=== PATIENT | male | born 1955 | race Caucasian/White ===

== ENCOUNTER 2021-01-28 23:45 | Inpatient (IN) | payer MEDICARE, OTHER ==
[~2021-01-28] VITALS: Ht 175 cm; Wt 88.1 kg
[~2021-01-28 23:45] MED LIST: AMLO5TAB2 PO; ASPI-266 PO; CARV25TA PO; CYAN50TA PO; DIAZ10TA PO; GEMF600T3 PO; LISI1TAB78 PO; PANT40TA2 PO; ROSU20TA14 PO; UBID1CAP51 PO
[2021-01-29 00:05] LABS: BASOPHILS # (AUTO) 0.1 10^3/uL (0.0-0.1); BASOPHILS % (AUTO) 1 % (0-10); EOSINOPHILS # (AUTO) 0.1 10^3/uL (0.0-0.3); EOSINOPHILS % (AUTO) 2 % (0-10); HEMATOCRIT 36 % (40-54); HEMOGLOBIN 12.7 g/dL (13.3-17.7); LYMPHOCYTES # (AUTO) 2.2 10^3/uL (1.0-4.0); LYMPHOCYTES % (AUTO) 43 % (12-44); MEAN CORPUSCULAR HEMOGLOBIN 34 pg (25-34); MEAN CORPUSCULAR HGB CONC 35 g/dL (32-36); MEAN CORPUSCULAR VOLUME 98 fL (80-99); MEAN PLATELET VOLUME 11.1 fL (9.0-12.2); MONOCYTES # (AUTO) 0.5 10^3/uL (0.0-1.0); MONOCYTES % (AUTO) 11 % (0-12); NEUTROPHILS # (AUTO) 2.2 10^3/uL (1.8-7.8); NEUTROPHILS % (AUTO) 43 % (42-75); PLATELET COUNT 198 10^3/uL (130-400); WHITE BLOOD COUNT 5.1 10^3/uL (4.3-11.0)
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
[2021-01-29 00:17] LABS: ALBUMIN 4.9 GM/DL (3.2-4.5); CHLORIDE 107 MMOL/L (98-107); POTASSIUM 3.8 MMOL/L (3.6-5.0); SODIUM 137 MMOL/L (135-145)
[2021-01-29 00:19] LABS: CALCIUM 9.5 MG/DL (8.5-10.1)
[2021-01-29 00:20] LABS: GLUCOSE 110 MG/DL (70-105); TOTAL PROTEIN 7.8 GM/DL (6.4-8.2)
[2021-01-29 00:21] LABS: CARBON DIOXIDE 14 MMOL/L (21-32)
[2021-01-29 00:22] LABS: BILIRUBIN,TOTAL 0.3 MG/DL (0.1-1.0)
[2021-01-29 00:23] LABS: ALKALINE PHOSPHATASE 70 U/L (40-136)
[2021-01-29 00:24] LABS: CREATININE SERUM 1.11 MG/DL (0.60-1.30); GFR ESTIMATED > 60
[2021-01-29 00:25] LABS: BUN/CREATININE RATIO 11
[2021-01-29 00:26] LABS: ALANINE AMINOTRANSFERASE 24 U/L (0-55)
[2021-01-29 00:44] LABS: BILIRUBIN,URINE NEGATIVE (NEGATIVE); CLARITY,URINE CLEAR; COLOR,URINE YELLOW; GLUCOSE, URINE (UA) NEGATIVE (NEGATIVE); KETONES,URINE NEGATIVE (NEGATIVE); LEUKOCYTE ESTERASE ,URINE NEGATIVE (NEGATIVE); NITRITE,URINE NEGATIVE (NEGATIVE); PROTEIN,URINE NEGATIVE (NEGATIVE)
[2021-01-29 00:58] LABS: AMPHETAMINE SCREEN, URINE NEGATIVE (NEGATIVE); BACTERIA,URINE NEGATIVE /HPF; BARBITURATE SCREEN URINE NEGATIVE (NEGATIVE); BENZODIAZEPINES SCREEN URINE POSITIVE (NEGATIVE); CANNABINOID SCREEN, URINE NEGATIVE (NEGATIVE); COCAINE SCREEN URINE NEGATIVE (NEGATIVE); METHADONE STAT NEGATIVE (NEGATIVE); METHAMPHETAMINE SCREEN URINE S NEGATIVE (NEGATIVE); OPIATE SCREEN URINE NEGATIVE (NEGATIVE); OXYCODONE STAT NEGATIVE (NEGATIVE); PROPOXYPHENE STAT NEGATIVE (NEGATIVE); TRICYCLIC ANTIDEPRESSANTS SCRE NEGATIVE (NEGATIVE)
[2021-01-29 00:59] LABS: SQUAMOUS EPITHELIAL CELL,UR RARE /HPF
[2021-01-29] MEDS ORDERED: fentaNYL INJ 100 MCG/2 ML AMP IVP ONE ×2 (01:00→02:00)
[2021-01-29] MEDS ORDERED: LACTATED RINGERS 1,000 ML IV ONE (01:15)
[2021-01-29 02:00] VITALS: BP 142/75
[2021-01-29] MEDS ORDERED: 1/2 NS IV SOLUTION 1,000 ML IV PRN (02:30)
[2021-01-29] MEDS ORDERED: SENNA W/DOCUSATE (SENOKOT S) TABLET PO PRN (02:30)
[2021-01-29] MEDS ORDERED: LORazepam 1 MG (ATIVAN) TAB PO PRN (02:30)
[2021-01-29] MEDS ORDERED: LORazepam INJ 2 MG/ML (ATIVAN) VIAL IM/IV PRN (02:30)
[2021-01-29] MEDS ORDERED: fentaNYL INJ 100 MCG/2 ML AMP IV PRN ×2 (02:30→08:30)
[2021-01-29] MEDS ORDERED: ONDANSETRON 4 MG/2 ML (SDV) Z0FRAN IV PRN (02:30)
[2021-01-29] MEDS ORDERED: ONDANSETRON 4 MG (ZOFRAN) ORAL DISSOLVE TAB SL PRN (02:30)
[2021-01-29] MEDS ORDERED: LORazepam INJ 2 MG/ML (ATIVAN) VIAL IV PRN (02:30)
[2021-01-29] MEDS ORDERED: D5 1/2 NS 1000 ML IV SOLUTION 1,000 ML IV PRN (02:30)
[2021-01-29] MEDS ORDERED: ANTACID SUSP 30 ML UDC (MYLANTA) PO PRN (02:30)
[2021-01-29] MEDS: D5 1/2 NS W/KCL 20 MEQ/L 1,000 ML IV SCH ×4 (03:37→22:10)
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
[2021-01-29] MEDS: THIAMINE INJECTION 100 MG, FOLIC ACID INJECTION 1 MG, MAGNESIUM SULFATE 2 GM, VITAMIN M... IV SCH ×5 (08:04)
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
[2021-01-29] MEDS: fentaNYL INJ 100 MCG/2 ML AMP IV PRN ×7 (09:11→22:19)
[2021-01-29 10:42] LABS: BASOPHILS % (AUTO) 0 % (0-10); EOSINOPHILS % (AUTO) 0 % (0-10); HEMATOCRIT 35 % (40-54); HEMOGLOBIN 11.9 g/dL (13.3-17.7); LYMPHOCYTES # (AUTO) 1.4 X 10^3 (1.0-4.0); LYMPHOCYTES % (AUTO) 20 % (12-44); MEAN CORPUSCULAR HEMOGLOBIN 34 pg (25-34); MEAN CORPUSCULAR HGB CONC 34 g/dL (32-36); MEAN CORPUSCULAR VOLUME 99 fL (80-99); MEAN PLATELET VOLUME 11.4 fL (9.0-12.2); MONOCYTES # (AUTO) 0.6 X 10^3 (0.0-1.0); MONOCYTES % (AUTO) 9 % (0-12); NEUTROPHILS % (AUTO) 70 % (42-75); PLATELET COUNT 196 10^3/uL (130-400); WHITE BLOOD COUNT 7.1 10^3/uL (4.3-11.0)
[2021-01-29] MEDS ORDERED: MULT-1136 PO (10:50)
[2021-01-29] MEDS ORDERED: PANT40TA52 PO (10:50)
[2021-01-29] MEDS ORDERED: AMLO-251 PO (10:50)
[2021-01-29] MEDS ORDERED: DIAZ10TA3 PO (10:50)
[2021-01-29] MEDS ORDERED: UBID100C17 PO (10:50)
[2021-01-29] MEDS ORDERED: LISI20TA26 PO (10:50)
[2021-01-29] MEDS ORDERED: ATOR80TA76 PO (10:50)
[2021-01-29] MEDS ORDERED: CARV25TA PO (10:50)
[2021-01-29] MEDS ORDERED: ASPI-1238 PO (10:50)
[2021-01-29] MEDS ORDERED: GEMF600T88 PO (10:50)
[2021-01-29] MEDS ORDERED: OMEG-109 PO (10:50)
[2021-01-29 11:06] LABS: ALANINE AMINOTRANSFERASE 23 U/L (0-55); ALBUMIN 4.5 GM/DL (3.2-4.5); ALKALINE PHOSPHATASE 60 U/L (40-136); BILIRUBIN,TOTAL 0.2 MG/DL (0.1-1.0); BUN/CREATININE RATIO 11; CALCIUM 8.9 MG/DL (8.5-10.1); CARBON DIOXIDE 17 MMOL/L (21-32); CHLORIDE 104 MMOL/L (98-107); CREATININE SERUM 0.95 MG/DL (0.60-1.30); GFR ESTIMATED > 60; GLUCOSE 127 MG/DL (70-105); MAGNESIUM 1.7 MG/DL (1.6-2.4); PHOSPHORUS 3.4 MG/DL (2.3-4.7); SODIUM 132 MMOL/L (135-145); TOTAL PROTEIN 7.1 GM/DL (6.4-8.2)
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
[2021-01-29] MEDS: HYDROcodone/APAP 7.5MG-325 MG/15 ML (LORTAB) UDC PO PRN ×2 (17:09→22:14)
[2021-01-29] MEDS ORDERED: NON-FORMULARY MEDICATION 1 EA EA (Carvedilol 12.5 MG) PO SCH (18:00)
[2021-01-29] MEDS: lisINopril 20 MG (PRINIVIL) TABLET PO SCH (20:09)
[2021-01-29] MEDS: GEMFIBROZIL 600 MG (LOPID) TAB PO SCH (20:09)
[2021-01-29] MEDS ORDERED: PANTOPRAZOLE 40 MG (PROTONIX) TAB PO ONE (20:14)
[2021-01-29] MEDS ORDERED: ROSUVASTATIN 10 MG (CRESTOR) TABLET PO SCH (21:00)
[2021-01-30] MEDS: fentaNYL INJ 100 MCG/2 ML AMP IV PRN ×7 (01:07→14:38)
[2021-01-30 03:40] LABS: BASOPHILS % (AUTO) 1 % (0-10); EOSINOPHILS % (AUTO) 1 % (0-10); HEMATOCRIT 34 % (40-54); HEMOGLOBIN 11.7 g/dL (13.3-17.7); LYMPHOCYTES # (AUTO) 1.6 10^3/uL (1.0-4.0); LYMPHOCYTES % (AUTO) 29 % (12-44); MEAN CORPUSCULAR HEMOGLOBIN 34 pg (25-34); MEAN CORPUSCULAR HGB CONC 34 g/dL (32-36); MEAN CORPUSCULAR VOLUME 99 fL (80-99); MEAN PLATELET VOLUME 11.6 fL (9.0-12.2); MONOCYTES # (AUTO) 0.5 10^3/uL (0.0-1.0); MONOCYTES % (AUTO) 9 % (0-12); NEUTROPHILS # (AUTO) 3.5 10^3/uL (1.8-7.8); NEUTROPHILS % (AUTO) 61 % (42-75); PLATELET COUNT 167 10^3/uL (130-400); WHITE BLOOD COUNT 5.7 10^3/uL (4.3-11.0)
[2021-01-30] MEDS: HYDROcodone/APAP 7.5MG-325 MG/15 ML (LORTAB) UDC PO PRN ×2 (03:42→07:46)
[2021-01-30 04:00] LABS: CHLORIDE 106 MMOL/L (98-107); POTASSIUM 4.2 MMOL/L (3.6-5.0); SODIUM 134 MMOL/L (135-145)
[2021-01-30 04:01] LABS: CALCIUM 8.6 MG/DL (8.5-10.1)
[2021-01-30 04:02] LABS: GLUCOSE 130 MG/DL (70-105)
[2021-01-30 04:03] LABS: CARBON DIOXIDE 17 MMOL/L (21-32)
[2021-01-30 04:06] LABS: BUN/CREATININE RATIO 8; CREATININE SERUM 0.89 MG/DL (0.60-1.30); GFR ESTIMATED > 60
[2021-01-30 04:08] LABS: MAGNESIUM 1.9 MG/DL (1.6-2.4)
[2021-01-30] MEDS: D5 1/2 NS W/KCL 20 MEQ/L 1,000 ML IV SCH ×2 (04:50→12:10)
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
[2021-01-30] MEDS ORDERED: amLODIPine 10 MG (NORVASC) TAB PO SCH (09:00)
[2021-01-30] MEDS: lisINopril 20 MG (PRINIVIL) TABLET PO SCH (09:06)
[2021-01-30] MEDS: GEMFIBROZIL 600 MG (LOPID) TAB PO SCH (09:06)
[2021-01-30] MEDS: THIAMINE INJECTION 100 MG, FOLIC ACID INJECTION 1 MG, MAGNESIUM SULFATE 2 GM, VITAMIN M... IV SCH ×5 (09:07)
--- NOTE | 2021-01-30 10:56 | Tele-ICU Progress Note ---
Subjective Date Seen by a Provider: Jan 30, 2021 Time Seen by a Provider: 10:55 Sepsis Event Evaluation Height, Weight, BMI Height: 5'9.00" Weight: 210lbs. oz. 95.613391sq; 28.08 BMI Method: Exam Exam Patient acknowledged, consented, and participated in this virtual visit which was conducted using real time audio/video Vital Signs Date Time Temp Pulse Resp B/P (MAP) Pulse Ox O2 Delivery O2 Flow Rate FiO2 01/30/21 10:00 55 116/80 (92) 93 Nasal Cannula 2.00 01/30/21 09:00 56 130/67 (88) 94 Nasal Cannula 2.00 01/30/21 08:00 60 173/86 (115) 91 Nasal Cannula 2.00 01/30/21 08:00 96 Nasal Cannula 2.00 01/30/21 07:54 36.4 01/30/21 07:00 52 9 153/104 (120) 93 Nasal Cannula 2.00 01/30/21 06:44 53 01/30/21 06:00 54 11 153/98 (116) 94 Nasal Cannula 2.00 01/30/21 05:00 53 10 138/78 (98) 94 Nasal Cannula 2.00 01/30/21 04:05 36.4 01/30/21 04:00 73 158/79 (105) 91 Nasal Cannula 2.00 01/30/21 04:00 94 Nasal Cannula 2.00 01/30/21 03:00 54 143/82 (102) 94 Nasal Cannula 2.00 01/30/21 02:00 50 135/103 (114) 93 Nasal Cannula 2.00 01/30/21 01:00 72 166/87 (113) 91 Nasal Cannula 2.00 01/30/21 00:49 54 01/30/21 00:06 36.6 01/30/21 00:00 57 136/88 (104) 95 Nasal Cannula 2.00 01/30/21 00:00 94 Nasal Cannula 2.00 01/29/21 23:00 52 127/80 (96) 93 Nasal Cannula 2.00 01/29/21 22:00 60 168/92 (117) 96 Nasal Cannula 2.00 01/29/21 21:00 53 149/88 (108) 95 Nasal Cannula 2.00 01/29/21 20:11 36.0 01/29/21 20:00 94 Nasal Cannula 2.00 01/29/21 20:00 57 155/81 (105) 93 Nasal Cannula 2.00 01/29/21 19:00 Nasal Cannula 2.00 01/29/21 19:00 68 01/29/21 19:00 59 31 154/78 (103) 94 Nasal Cannula 2.00 01/29/21 18:00 58 156/90 (112) 95 Room Air 01/29/21 17:00 70 172/83 (112) 95 Room Air 01/29/21 16:00 97 Nasal Cannula 3.00 01/29/21 16:00 57 159/85 (109) 94 Room Air 01/29/21 15:54 36.8 01/29/21 15:00 66 179/88 (118) 95 Room Air 01/29/21 14:00 62 16 167/81 (109) 93 Room Air 01/29/21 13:00 69 13 142/84 (103) 92 Room Air 01/29/21 12:50 55 01/29/21 12:00 95 Nasal Cannula 3.00 01/29/21 12:00 61 14 147/85 (105) 94 Room Air 01/29/21 11:50 36.1 01/29/21 11:00 73 14 164/82 (109) 94 Room Air I & O 01/30/21 07:00 Intake Total 2950 ml Output Total 4100 ml Balance -1150 ml Height & Weight Height: 5'9.00" Weight: 210lbs. oz. 95.696065za; 28.08 BMI Method: General Appearance: No Apparent Distress, WD/WN HEENT: Other Neck: Non Tender, Supple Respiratory: Lungs Clear, No Respiratory Distress Cardiovascular: Regular Rate, Rhythm, No Murmur Capillary Refill: Less Than 3 Seconds Extremity: Normal Inspection, Non Tender Neurologic/Psychiatric: Alert, Oriented x3 Skin: Normal Color, Warm/Dry Lymphatic: No Adenopathy Results Lab Laboratory Tests 01/28/21 23:58 01/29/21 10:20 01/30/21 03:20 Assessment/Plan Assessment/Plan (Tele-ICU Physician , consultation) Available chart/ vitals / labs / Images reviewed H&P is from ER notes Patient's information available about PMH, Shx, Fhx allergy reviewed in EMR. ROS as per chart and RN report Patient admitted 01/29 - with Fx of face bones Now in ICU, hemodynamically stable Video assessment done using teleICU camera, rest of exam as per RN Discussed with RN. Consultants: Sx A/P Comminuted fracture of the zygoma including the trigone with depression into the maxillary sinus left and left orbital wall laterally, Mandibular body fracture bilaterally with displacement inferiorly - await sx consult - perlim plan for sx - timing pending - pain control ETOH abuse - thiamine /folate - watch for withdrawal Lines : periph Central Line Necessity Reviewed) Plata: OG: Nutrition: npo Analgesia: fentanyl Anxiety/ delirium VTE Prophylaxis: SCD, lovenox when OK with Sx Stress Ulcer Prophylaxis: na Glycemic Control: na Plans in collaboration with bedside consultants and IM MDs. Discussed with RN to reach out if any questions or concerns A total of 10 minutes of critical care time was devoted to this patient today, required to treat and/or prevent further deterioration of critical care condi tion ( as above CHRISTIANO HARVEY MD Jan 30, 2021 10:56
[2021-01-30] MEDS: HYDROcodone/APAP 5 MG/325 MG (LORTAB) TAB PO PRN ×2 (12:10→15:17)
[2021-01-30] MEDS ORDERED: PANTOPRAZOLE 40 MG (PROTONIX) TAB PO SCH (15:00)
[2021-01-30] MEDS ORDERED: ACHD5005 PO (15:13)
--- NOTE | 2021-01-30 15:17 | Discharge Inst-Simple/Standard ---
Discharge Inst-Standard Patient Instructions/Follow Up Plan of Care/Instructions/FU: You have surgery planned tomorrow with Dr. Hackett. You can be on a clear liquid diet today, and nothing to eat or drink after midnight. He will have follow up arranged after surgery. Follow up with your primary care physician in the next 2 weeks. Activity as Tolerated: No Discharge Diet: Other Diet (Clear liquid diet and nothing to eat or drink after midnight for surgery tomorrow.) Other Inst to Patient Follow up Appt: Follow up with Dr. Hackett will be arranged after surgery tomorrow. Follow up with you primary care physician in the next couple weeks. Follow up with Dr. Clay if needed. Instructions: No lifting greater than 10 pounds. No strenuous activity. May shower. Use incentive spirometer at home as directed. No Smoking Symptoms to Report: Appetite Changes, Extremity Discoloration, Numbness/Tingling, Swelling Increased, Bleeding Excessive, Eyesight Changes, Pain Increased, Urine Color Change, Constipation(Persistent), Fever over 101 degree F, Pain/Pressure in chest, Urinating Difficulty, Cough Up/Vomit Blood, Heart Beat Irreg/Pounding, Pain/Pressure in jaw, Vaginal Bleeding Increase, Cramps in feet or legs, Lightheadedness, Pain/Pressure in shoulder, Diarrhea(Persistent), Memory Changes Suddenly, Questions/Concerns, Weight gain consecutive days, Dizziness/Fainting, Nausea/Vomiting, Shortness of Breath, Weight gain over 2 pounds If questions or concerns contact your physician Or seek help at emergency department. SYLVIE LCAY DO Jan 30, 2021 15:17
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
[2021-02-04] MEDS ORDERED: CLOB15OI2 TOP (12:17)
== END 2021-01-30 15:50 | disposition home or self-care (01) | DRG 158 ==
LOC: EDUNIT# 23:45 → ER 23:47 → ICU 01-29 00:50
PROVIDERS: ADMIT Surgery; ATTEND Surgery
DX: S02.40FA Zygomatic fracture, left side, initial encounter for closed fracture (principal); S02.32XA Fracture of orbital floor, left side, initial encounter for closed fracture; Y04.2XXA Assault by strike against or bumped into by another person, initial encounter; S02.602A Fracture of unspecified part of body of left mandible, initial encounter for closed fracture; Z20.822 Contact with and (suspected) exposure to COVID-19; S02.601A Fracture of unspecified part of body of right mandible, initial encounter for closed fracture; S09.90XA Unspecified injury of head, initial encounter; S02.40DA Maxillary fracture, left side, initial encounter for closed fracture; F17.210 Nicotine dependence, cigarettes, uncomplicated; E78.00 Pure hypercholesterolemia, unspecified; I10 Essential (primary) hypertension; I73.9 Peripheral vascular disease, unspecified; F10.129 Alcohol abuse with intoxication, unspecified; F32.9 Major depressive disorder, single episode, unspecified; Z79.899 Other long term (current) drug therapy; Z79.82 Long term (current) use of aspirin
CPT/HCPCS: 36415; 70450; 70486; 72125; 80048; 80053; 80306; 80320; 81000; 83735; 84100; 85025; 87081; 87636; 93041

== ENCOUNTER 2021-02-05 10:26 | Outpatient (RCR) | payer MEDICARE ==
[~2021-02-05] VITALS: Ht 175.3 cm; Wt 82.3 kg
[~2021-02-05 10:26] MED LIST changes: +ACHD5005 PO; +AMLO-251 PO; +ASPI-1238 PO; +ATOR80TA76 PO; +CLOB15OI2 TOP; +DIAZ10TA3 PO; +GEMF600T88 PO; +LISI20TA26 PO; +MULT-1136 PO; +OMEG-109 PO; +PANT40TA52 PO; +UBID100C17 PO
[2021-02-07] MEDS ORDERED: ASPI-1238 PO (14:17)
== END 2021-05-05 | disposition home or self-care (01) ==
LOC: PREOP 10:26
PROVIDERS: ATTEND Specialist
DX: Z01.812 Encounter for preprocedural laboratory examination (principal); S02.602A Fracture of unspecified part of body of left mandible, initial encounter for closed fracture; S02.601A Fracture of unspecified part of body of right mandible, initial encounter for closed fracture; X58.XXXA Exposure to other specified factors, initial encounter; U07.1 COVID-19
CPT/HCPCS: 87635

== ENCOUNTER 2021-02-07 12:15 | Day surgery (SDC) | payer MEDICARE ==
[~2021-02-07] VITALS: Ht 175.3 cm; Wt 79.9 kg
[2021-02-07] VITALS (10 sets, daily range): BP systolic 140–190; BP diastolic 67–96
[2021-02-07] MEDS ORDERED: ceFAZolin 2 GM IV Premixed 50 ML IV ONE (12:45)
[2021-02-07] MEDS ORDERED: LIDOCAINE/EPI 2% 1:100,00 (XYLOCAINE) 20 ML VIAL ONE (12:52)
[2021-02-07] MEDS ORDERED: ROPIVACAINE 5MG/ML 30ML VIAL ONE (12:53)
[2021-02-07] MEDS ORDERED: proPOfol 200 MG/20 ML (DIPRIVAN) VIAL IV ONE ×2 (13:34→14:38)
[2021-02-07] MEDS ORDERED: fentaNYL INJ 100 MCG/2 ML AMP ONE ×2 (13:34→17:49)
[2021-02-07] MEDS ORDERED: ONDANSETRON 4 MG/2 ML (SDV) Z0FRAN ONE (13:34)
[2021-02-07] MEDS ORDERED: LIDOCAINE PF 2% 5 ML (XYLOCAINE) VIAL ONE (13:34)
[2021-02-07] MEDS ORDERED: MIDAZOLAM 2 MG/2 ML (VERSED) VIAL ONE (13:34)
[2021-02-07] MEDS ORDERED: ROCURONIUM 10 MG/ML 5 ML SYRINGE IV ONE (13:34)
[2021-02-07] MEDS ORDERED: SEVOFLURANE (ULTANE) 15 ML INHAL SOLN ONE ×3 (13:34→17:19)
[2021-02-07] MEDS ORDERED: PHENYLEPHRINE 0.25% NASAL SPR (NEO-SYNEPHRINE) 15 ML NS ONE (13:39)
--- NOTE | 2021-02-07 14:11 | Progress Note-Pre Operative ---
Pre-Operative Progress Note H&P Reviewed The H&P was reviewed, patient examined and no changes noted. Date Seen by Provider: Feb 07, 2021 Time Seen by Provider: 13:00 Date H&P Reviewed: Feb 07, 2021 Time H&P Reviewed: 13:00 Pre-Operative Diagnosis: bilateral mandible fracture severe displacement KARINA RENEE DDS Feb 07, 2021 14:11
[2021-02-07] MEDS ORDERED: HYDROcodone/APAP 7.5MG-325 MG/15 ML (LORTAB) UDC PO PRN (14:15)
[2021-02-07] MEDS ORDERED: ASPI-1238 PO (14:17)
[2021-02-07] MEDS: ceFAZolin INJECTION 1,000 MG in WATER (STERILE) FOR INJECTION 10 ML IV SCH ×2 (14:22→22:01)
[2021-02-07] MEDS: LACTATED RINGERS 1,000 ML IV PRN ×2 (14:22→16:00)
[2021-02-07] MEDS ORDERED: SUGAMMADEX 500 MG/5 ML VIAL (BRIDION) IV ONE (16:57)
[2021-02-07] MEDS ORDERED: fentaNYL INJ 100 MCG/2 ML AMP IVP ONE (18:00)
[2021-02-07] MEDS: HYDROcodone/APAP 7.5MG-325 MG/15 ML (LORTAB) UDC PO PRN ×2 (18:52→23:23)
--- NOTE | 2021-02-07 18:52 | Anesthesia-General Post-Op ---
General Patient Condition Mental Status/LOC: Same as Preop Cardiovascular: Satisfactory Nausea/Vomiting: Absent Respiratory: Satisfactory Pain: Controlled Complications: Absent Post Op Complications Complications None Follow Up Care/Instructions Patient Instructions None needed. Anesthesia/Patient Condition Patient Condition Patient is doing well, no complaints, stable vital signs, no apparent adverse anesthesia problems. No complications reported per nursing. DILLON GEORGE CRNA Feb 07, 2021 18:52
[2021-02-07] MEDS: lisINopril 20 MG (PRINIVIL) TABLET PO SCH (18:53)
[2021-02-07] MEDS: LACTATED RINGERS 1,000 ML IV SCH (20:53)
[2021-02-07] MEDS ORDERED: ceFAZolin INJECTION 1,000 MG in WATER (STERILE) FOR INJECTION 10 ML IV SCH (22:00)
[2021-02-07] MEDS: HYDROmorphone 2 MG/ML VIAL (DILAUDID) IV PRN (22:01)
[2021-02-08] MEDS: HYDROmorphone 2 MG/ML VIAL (DILAUDID) IV PRN (00:33)
[2021-02-08] MEDS: LACTATED RINGERS 1,000 ML IV SCH (03:25)
[2021-02-08] MEDS: HYDROcodone/APAP 7.5MG-325 MG/15 ML (LORTAB) UDC PO PRN ×2 (03:40→08:35)
[2021-02-08 03:42] VITALS: BP 150/78
[2021-02-08] MEDS: ceFAZolin INJECTION 1,000 MG in WATER (STERILE) FOR INJECTION 10 ML IV SCH (06:19)
[2021-02-08 07:06] VITALS: BP 153/74
[2021-02-08] MEDS: lisINopril 20 MG (PRINIVIL) TABLET PO SCH (08:33)
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
== END 2021-02-08 10:45 ==
LOC: 4TH 12:15 → SDC 12:15
PROVIDERS: ATTEND Specialist
DX: S02.69XA Fracture of mandible of other specified site, initial encounter for closed fracture (principal); E78.5 Hyperlipidemia, unspecified; I73.9 Peripheral vascular disease, unspecified; K21.9 Gastro-esophageal reflux disease without esophagitis; I10 Essential (primary) hypertension; J44.9 Chronic obstructive pulmonary disease, unspecified; F17.210 Nicotine dependence, cigarettes, uncomplicated; Z95.1 Presence of aortocoronary bypass graft; Z79.899 Other long term (current) drug therapy
CPT/HCPCS: 21470; 87081; 87636; C1713 ×5